=== PATIENT | female | born 1950 | race Caucasian/White ===

== ENCOUNTER → 2017-09-12 | Outpatient (CLI) | payer MEDICARE, OTHER ==
--- NOTE | 2017-09-12 13:57 | RAD ---
Ultrasound venous Doppler Indication:Right Thigh Pain Technique: Grayscale, color Doppler and spectral waveform ultrasound images of the right lower extremity deep veins. Comparison: None Findings: The interrogated lower extremity veins are compressible and demonstrate evidence of blood flow with normal respiratory variation and response to augmentation. There is a oval-shaped cystic lesion in the posterior fossae measuring 4.5 x 2.2 x 1.4 cm without internal vascularity. Impression: 1. No sonographic evidence of acute DVT of the interrogated right lower extremity deep veins. 2. 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
== END | disposition home or self-care (01) ==
LOC: US 12:55
PROVIDERS: ATTEND Specialist
DX: R22.41 Localized swelling, mass and lump, right lower limb (principal)
CPT/HCPCS: 93971

== ENCOUNTER 2019-07-06 08:58 | Emergency (ER) | payer MEDICARE ==
[~2019-07-06] VITALS: Ht 157.5 cm; Wt 103.2 kg
[2019-07-06 09:00] VITALS: BP 143/96
--- NOTE | 2019-07-06 09:45 | PHYS DOC ---
Adult General Chief Complaint Chief Complaint: VAGINAL PROBLEM HPI HPI Patient is a 68-year-old female who presents with complaint of irritation in her vaginal/shoulder region for the last few weeks. Patient states that her doctor prescribed some kind of a medication that she is not able to name but states that it didn't help. She states that she was trying to wait to go see the doctor tomorrow but she states the symptoms have just gotten to the point where she can't tolerate it any longer. She states that it feels like her hair is really bristly down there and she is being poked all over the place like a prickly sensation. Patient rates her pain to be a 7 out of 10. She denies any fever. She denies any vaginal discharge.[] Review of Systems Review of Systems Constitutional: Denies fever or chills [] Respiratory: Denies cough or shortness of breath [] Cardiovascular: No additional information not addressed in HPI [] : Denies dysuria or hematuria. Positive vaginal irritation. [] Integument: Denies rash or skin lesions [] Physical Exam Physical Exam Constitutional: Well developed, well nourished, no acute distress, non-toxic appearance. [] Cardiovascular: Regular rate and rhythm[] Lungs & Thorax: Bilateral breath sounds clear to auscultation [] Abdomen: Bowel sounds normal, soft, no tenderness. [] Skin: Warm, dry, no erythema, no rash. [] Neurologic: Alert and oriented X 3, no focal deficits noted. [] EKG EKG [] Radiology/Procedures Radiology/Procedures [] Course & Med Decision Making Course & Med Decision Making Pertinent Labs and Imaging studies reviewed. (See chart for details) [] Dragon Disclaimer Dragon Disclaimer This electronic medical record was generated, in whole or in part, using a voice recognition dictation system. Departure Departure: Impression: Primary Impression: Vulvitis Disposition: 01 HOME, SELF-CARE Condition: STABLE Referrals: CLAUDIA DUONG MD (PCP) Patient Instructions: Candidal Vulvovaginitis, [id number] Scripts Mupirocin Calcium (MUPIROCIN) 15 Gm Cream..g. 1 VIJAY TP BID for infection, #15 GM 0 Refills Prov: REGINE HEADLEY Jr. DO 07/06/19 Nystatin/Triamcin (NYSTATIN-TRIAMCINOLONE CREAM) 15 Gm Cream..g. 1 VIJAY TP BID for inflammation, #30 GM Prov: REGINE HEADLEY Jr. DO 07/06/19 Fluconazole (DIFLUCAN) 150 Mg Tablet 1 TAB PO ONCE for infection, #1 TAB 1 Refill Prov: REGINE HEADLEY Jr. DO 07/06/19 Sulfamethoxazole/Trimethoprim (BACTRIM DS TABLET) 1 Each Tablet 1 TAB PO BID for infection for 10 Days, #20 TAB 0 Refills Prov: REGINE HEADLEY Jr. DO 07/06/19 Problem Qualifiers Primary Impression: Vulvitis Chronicity: subacute Qualified Codes: N76.3 - Subacute and chronic vulvitis REGINE HEADLEY Jr. DO Jul 06, 2019 09:45
[2019-07-06] MEDS ORDERED: NYST15CR2 TP (10:03)
[2019-07-06] MEDS ORDERED: MUPI15CR8 TP (10:03)
[2019-07-06] MEDS ORDERED: FLUC150T PO (10:03)
[2019-07-06] MEDS ORDERED: SULF1TAB24 PO (10:03)
[2019-07-06 10:13] LABS: CLARITY,URINE HAZY; COLOR,URINE YELLOW; GLUCOSE,URINE >=1000 mg/dL (NEG)
[2019-07-06 10:14] LABS: BACTERIA,URINE MANY /HPF (0-FEW); BILIRUBIN,URINE NEG (NEG); NITRITE,URINE POS (NEG); SQUAMOUS EPITHELIAL CELL,UR FEW /LPF; UROBILINOGEN,URINE 0.2 mg/dL (0.2 mg/dL)
[2019-07-06 10:15] LABS: YEAST,URINE PRESENT /HPF
== END 2019-07-06 10:07 | disposition home or self-care (01) ==
LOC: ER 08:58
DX: N76.2 Acute vulvitis (principal)
CPT/HCPCS: 81001; 87086; 87186; 99284

== ENCOUNTER 2019-07-11 11:04 | Inpatient (IN) | payer MEDICARE ==
[2019-07-11] VITALS (9 sets, daily range): BP systolic 131–176; BP diastolic 73–108
[~2019-07-11] VITALS: Ht 152.4 cm; Wt 105.2 kg
[~2019-07-11 11:04] MED LIST: FLUC150T PO; MUPI15CR8 TP; NYST15CR2 TP; SULF1TAB24 PO
[2019-07-11 11:30] LABS: BASO # 0.1 x10^3/uL (0.0-0.2); BASO % 1 % (0-3); EOS # 0.1 x10^3/uL (0.0-0.7); EOS % 2 % (0-3); HEMATOCRIT 47.1 % (36.0-47.0); HEMOGLOBIN 15.3 g/dL (12.0-15.5); LYMPH # 1.8 x10^3/uL (1.0-4.8); LYMPH % 27 % (24-48); MEAN CORPUSCULAR HEMOGLOBIN 29 pg (25-35); MEAN CORPUSCULAR HGB CONC 32 g/dL (31-37); MEAN CORPUSCULAR VOLUME 90 fL (79-100); MONO # 0.5 x10^3/uL (0.0-1.1); MONO % 8 % (0-9); NEUT # 4.2 x10^3uL (1.8-7.7); NEUT % 63 % (31-73); PLATELET COUNT 196 x10^3/uL (140-400); RED BLOOD COUNT 5.26 x10^6/uL (3.50-5.40); RED CELL DISTRIBUTION WIDTH 15.3 % (11.5-14.5); WHITE BLOOD COUNT 6.7 x10^3/uL (4.0-11.0)
[2019-07-11] MEDS ORDERED: IV NORMAL SALINE 1,000ML 1,000 ML IV ONE (11:30)
[2019-07-11] MEDS ORDERED: INSULIN REGULAR 100 UNIT/ML 3ML VIAL. IV ONE (11:30)
[2019-07-11 11:42] LABS: ALBUMIN 3.5 g/dL (3.4-5.0); ALBUMIN/GLOBULIN RATIO 0.8 (1.0-1.7); CALCIUM 9.1 mg/dL (8.5-10.1); CREATININE 1.2 mg/dL (0.6-1.0); GFR 44.8; POTASSIUM 4.2 mmol/L (3.5-5.1); TOTAL BILIRUBIN 0.3 mg/dL (0.2-1.0); TOTAL PROTEIN 7.9 g/dL (6.4-8.2)
[2019-07-11 12:07] LABS: BACTERIA,URINE 0 /HPF (0-FEW); BILIRUBIN,URINE NEG (NEG); CLARITY,URINE CLEAR; COLOR,URINE STRAW; GLUCOSE,URINE >=1000 mg/dL (NEG); NITRITE,URINE NEG (NEG); RBC,URINE 0 /HPF (0-2); SQUAMOUS EPITHELIAL CELL,UR OCC /LPF; UROBILINOGEN,URINE 0.2 mg/dL (0.2 mg/dL); WBC,URINE 0 /HPF (0-4)
--- NOTE | 2019-07-11 13:12 | PHYS DOC ---
Past History Past Medical History: Depression, Diabetes, High Cholesterol, Hypertension, UTI Past Surgical History: Hysterectomy, Tubal ligation Alcohol Use: None Drug Use: None Adult General Chief Complaint Chief Complaint: HYPERGLYCEMIA HPI HPI Patient is a 68 year old F who presents with high blood sugar. She also has had increased urination, and dry mouth. She states she has not been taking her medications regularly. She denies other associated symptoms at this time. Review of Systems Review of Systems Constitutional: Denies fever or chills [] Eyes: Denies change in visual acuity, redness, or eye pain [] HENT: Denies nasal congestion or sore throat [] Respiratory: Denies cough or shortness of breath [] Cardiovascular: No additional information not addressed in HPI [] GI: Denies abdominal pain, nausea, vomiting, bloody stools or diarrhea [] : Negative except history of present illness Musculoskeletal: Denies back pain or joint pain [] Integument: Denies rash or skin lesions [] Neurologic: Denies headache, focal weakness or sensory changes [] Endocrine: Denies polyuria or polydipsia [] All other systems were reviewed and found to be within normal limits, except as documented in this note. Family History Family History No pertinent family medical history was reported Current Medications Current Medications Current medications were reviewed Current Medications Medications (Trade) Dose Ordered Sig/[facility] Start Time Stop Time Status Last Admin Dose Admin Insulin Human Regular (HumuLIN R VIAL) 10 unit 1X ONCE 07/11/19 11:30 07/11/19 11:31 DC 07/11/19 11:46 10 UNIT Sodium Chloride 1,000 ml @ 1,000 mls/hr 1X ONCE 07/11/19 11:30 07/11/19 12:29 DC 07/11/19 11:35 1,000 MLS/HR Allergies Allergies Allergies Coded Allergies Type Severity Reaction Last Updated Verified No Known Drug Allergies 07/06/19 No Physical Exam Physical Exam Constitutional: Well developed, well nourished, no acute distress, non-toxic appearance. [] HENT: Normocephalic, atraumatic, dry mucous membranes Eyes: EOMI, conjunctiva normal, no discharge. [] Neck: Normal range of motion, no tenderness, supple, no stridor. [] Cardiovascular:Heart rate regular rhythm, no murmur [] Lungs & Thorax: Bilateral breath sounds clear to auscultation [] Abdomen: Bowel sounds normal, soft, no tenderness, no masses, no pulsatile masses. [] Skin: Warm, dry, no erythema, no rash. [] Extremities: No tenderness, no cyanosis, no clubbing, ROM intact, no edema. [] Neurologic: Alert and oriented X 3, normal motor function, normal sensory function, no focal deficits noted. [] Psychologic: Affect normal, judgement normal, mood normal. [] Current Patient Data Vital Signs Vital Signs Date Time Temp Pulse Resp B/P (MAP) Pulse Ox O2 Delivery O2 Flow Rate FiO2 07/11/19 12:30 78 20 133/82 (99) 99 Room Air 07/11/19 11:17 4.0 07/11/19 11:10 98.1 Lab Results Laboratory Tests Test 07/11/19 11:13 07/11/19 11:14 07/11/19 11:40 07/11/19 12:55 Glucose (Fingerstick) 599 mg/dL (70-99) *H 453 mg/dL (70-99) H White Blood Count 6.7 x10^3/uL (4.0-11.0) Red Blood Count 5.26 x10^6/uL (3.50-5.40) Hemoglobin 15.3 g/dL (12.0-15.5) Hematocrit 47.1 % (36.0-47.0) H Mean Corpuscular Volume 90 fL (79-100) Mean Corpuscular Hemoglobin 29 pg (25-35) Mean Corpuscular Hemoglobin Concent 32 g/dL (31-37) Red Cell Distribution Width 15.3 % (11.5-14.5) H Platelet Count 196 x10^3/uL (140-400) Neutrophils (%) (Auto) 63 % (31-73) Lymphocytes (%) (Auto) 27 % (24-48) Monocytes (%) (Auto) 8 % (0-9) Eosinophils (%) (Auto) 2 % (0-3) Basophils (%) (Auto) 1 % (0-3) Neutrophils # (Auto) 4.2 x10^3uL (1.8-7.7) Lymphocytes # (Auto) 1.8 x10^3/uL (1.0-4.8) Monocytes # (Auto) 0.5 x10^3/uL (0.0-1.1) Eosinophils # (Auto) 0.1 x10^3/uL (0.0-0.7) Basophils # (Auto) 0.1 x10^3/uL (0.0-0.2) Sodium Level 134 mmol/L (136-145) L Potassium Level 4.2 mmol/L (3.5-5.1) Chloride Level 97 mmol/L (98-107) L Carbon Dioxide Level 28 mmol/L (21-32) Anion Gap 9 (6-14) Blood Urea Nitrogen 36 mg/dL (7-20) H Creatinine 1.2 mg/dL (0.6-1.0) H Estimated GFR (Cockcroft-Gault) 44.8 BUN/Creatinine Ratio 30 (6-20) H Glucose Level 612 mg/dL (70-99) *H Calcium Level 9.1 mg/dL (8.5-10.1) Magnesium Level 2.0 mg/dL (1.8-2.4) Total Bilirubin 0.3 mg/dL (0.2-1.0) Aspartate Amino Transferase (AST) 7 U/L (15-37) L Alanine Aminotransferase (ALT) 26 U/L (14-59) Alkaline Phosphatase 115 U/L (46-116) Total Protein 7.9 g/dL (6.4-8.2) Albumin 3.5 g/dL (3.4-5.0) Albumin/Globulin Ratio 0.8 (1.0-1.7) L Urine Collection Type Unknown Urine Color Straw Urine Clarity Clear Urine pH 5.5 Urine Specific [place] 1.010 Urine Protein Trace (NEG-TRACE) Urine Glucose (UA) >=1000 mg/dL (NEG) Urine Ketones (Stick) Trace mg/dL (NEG) Urine Blood Trace (NEG) Urine Nitrite Neg (NEG) Urine Bilirubin Neg (NEG) Urine Urobilinogen Dipstick 0.2 mg/dL (0.2 mg/dL) Urine Leukocyte Esterase Neg (NEG) Urine RBC 0 /HPF (0-2) Urine WBC 0 /HPF (0-4) Urine Squamous Epithelial Cells Occ /LPF Urine Bacteria 0 /HPF (0-FEW) Radiology/Procedures Radiology/Procedures [] Course & Med Decision Making Course & Med Decision Making Pertinent Labs and Imaging studies reviewed. (See chart for details) [] Dragon Disclaimer Dragon Disclaimer This electronic medical record was generated, in whole or in part, using a voice recognition dictation system. Departure Departure: Impression: Primary Impression: Hyperglycemia Disposition: ADMITTED INPATIENT Admitting Physician: Bonifacio Wilson Condition: STABLE Referrals: CLAUDIA DUONG MD (PCP) HANNY FLORES MD Jul 11, 2019 13:12
[2019-07-11] MEDS ORDERED: IV NORMAL SALINE 1,000ML 1,000 ML IV SCH (13:50)
[2019-07-11] MEDS ORDERED: ONDANSETRON PF 4 MG/2 ML VIAL. IV PRN (14:00)
[2019-07-11] MEDS ORDERED: DEXTROSE 50% 25 GM / 50ML DISP.SYRIN. IV PRN (14:15)
--- NOTE | 2019-07-11 14:16 | HP ---
ADMIT DATE: 07/11/2019 ATTENDING PHYSICIAN: Dr. Naidu. CHIEF COMPLAINT: High blood sugar. HISTORY OF PRESENT ILLNESS: The patient is a very pleasant 68-year-old female sent to the Emergency Room from her primary care doctor's office. She has stopped taking her insulin 3 days ago. Blood sugar in the ED was 612 mg/dL. She has had some blurred vision. She has increased urination, dry mouth. She denied any fevers or chills. Her lab work showed elevated blood sugar, anion gap surprisingly was normal. Bicarbonate level is 28 millimoles per liter. In talking with her, she is very confused. She says she takes one shot of insulin. I do not know what her compliance is. Hemoglobin A1c is pending. I suspect it is going to be high. She states that she stopped taking the insulin this past Sunday for whatever reason, she could not tell me and her thought process is very tangential. There is no report of dementia, but is very evident. PAST MEDICAL HISTORY: Includes a history of type 2 diabetes, hyperlipidemia, coronary artery disease, previous bypass, hysterectomy and tubal ligation. SOCIAL HISTORY: She is a nonsmoker, nondrinker. CURRENT MEDICINES: On the database. Whether or not she was compliant remains to be seen. FAMILY HISTORY: Unobtainable. ALLERGIES: She has no recorded drug allergies. REVIEW OF SYSTEMS: Significant for insulin dependency. She states she only takes 1 shot of insulin daily. She could not tell me into further detail as to who is managing sugars. She lives alone. There is no family with her. She denied any recent travel, fevers or chills. She denies any chest pain or palpitation. All other systems reviewed and determined to be negative. PHYSICAL EXAMINATION: GENERAL: When I saw her, this is a pleasant, but confused elderly female. INITIAL VITAL SIGNS: In the ED showed a blood pressure 132/69, pulse is 72 and regular. She was afebrile, oxygen saturation 97% on room air. HEENT: Head is without trauma. Her pupils are reactive. Sclerae nonicteric. Oropharynx clear. Mucous membranes are bit dry. NECK: Supple, no bruits identified. LUNGS: Otherwise clear to auscultation. CARDIOVASCULAR: Showed distant heart tones. No obvious gallops. Peripheral pulses are palpable and full. ABDOMEN: Soft, obese, protuberant. No organomegaly. Bowel sounds are normoactive. EXTREMITIES: Show trace edema. NEUROLOGIC: Her speech is fluent, focally intact. No focal deficit. Her thought process is very tangential. She is very confused and cannot answer significant pertinent questions. PERTINENT LABORATORY DATA: Hemoglobin was 15.3 g/dL in a hemoconcentrated state. White count 6700 with a normal differential. Chemistry panel: Sodium is 134, which adjusted for the pseudohyponatremia from high blood sugar is within range. Her creatinine is 1.2 mg/dL, BUN 36. Nonfasting blood sugar on admission 612 mg/dL. Transaminases, bilirubin and total protein are all within normal range. ASSESSMENT: 1. This 68-year-old female has hyperglycemia due to noncompliance of medication. 2. Type 2 diabetes mellitus. 3. Hypertension, essential. 4. History of coronary artery disease. 5. Underlying dementia that is profound. PLAN: 1. Admit to the ICU. 2. I have ordered insulin drip for tonight with the goal of transitioning her to subcutaneous insulin. 3. We will order a diabetic diet. 4. Serial chemistries. 5. We will have Geospatial Analyst see the patient to talk about and plan a safe discharge plan. There is no family here. BARRINGTON NAIDU MD DR: VENECIA/radha JOB#: [id number] / [id number]
[2019-07-11] MEDS: INSULIN REGULAR VIAL 100 UNIT in IV NORMAL SALINE 100ML 100 ML IV PRN (15:03)
--- NOTE | 2019-07-11 15:36 | NUR ---
Pt arrived onto ICU unit at approximately 1330 via EMS. Pt seen at ED and admitted for hyperglycemia with a blood sugar of 612. Pt given 1000mL NS via IV and 10 units of Insulin. Pt has peripheral IV in Left AC, 20 gauge. Vital signs stable upon arrival, pt denies any pain at this time, pt ambulated from EMS stretcher to bed. Non-skid socks, telemetry, O2 sat, applied upon arrival. Bed in lowest position, call light within reach, side rails x2 up. Blood sugar upon arrival to unit was 460. Insulin drip started at 8units/hr per glucose protocol and 's orders. Pt is a full-code, 1800 ADA diet. Pt denies any symptoms of high blood sugar. Pt belonging documented and noted. Per 's orders, pt is to only receive Insulin drip at this time, do not restart home medications. Home med list arrived with pt. Will continue to monitor and assess as appropiate. Case Management consulted. Pt instructed to call for any assistance.
--- NOTE | 2019-07-11 16:24 | EKG ---
[address] [address] Test Date: 2019-07-11 Test Time: 11:50:19 Pat Name: ROCKY MONIQUE Department: Room: [facility] Gender: F Civil Project Engineer: : [id number] Requested By: HANNY FLORES Order Number: [id number] Reading MD: Measurements Intervals [place] Rate: 73 P: 23 CO: 138 QRS: 21 QRSD: 80 T: 52 QT: 388 QTc: 431 Interpretive Statements SINUS RHYTHM QRS(T) CONTOUR ABNORMALITY CONSIDER ANTEROSEPTAL MYOCARDIAL DAMAGE POSSIBLY ABNORMAL ECG RI6.01 No previous ECG available for comparison
[2019-07-11] MEDS ORDERED: ASPI-630 PO (16:43)
[2019-07-11] MEDS ORDERED: NITR0.4T24 SL (17:15)
[2019-07-11] MEDS ORDERED: OXYB5TAB10 PO (17:15)
[2019-07-11] MEDS ORDERED: INSU100I49 SQ (17:15)
[2019-07-11] MEDS ORDERED: LACT1CAP12 PO (17:15)
[2019-07-11] MEDS ORDERED: CARV25TA2 PO (17:15)
[2019-07-11] MEDS ORDERED: LIPITOR80 MG PO (17:15)
[2019-07-11] MEDS ORDERED: CLOP75TA57 PO (17:15)
[2019-07-11] MEDS ORDERED: CLOT15CR4 TP (17:15)
[2019-07-11] MEDS ORDERED: HYDR12.572 PO (17:15)
[2019-07-11] MEDS ORDERED: LOSA100T14 PO (17:15)
[2019-07-11] MEDS ORDERED: SERT50TA PO (17:15)
[2019-07-11] MEDS ORDERED: METF10007 PO (17:15)
[2019-07-11] MEDS ORDERED: GLIM4TAB8 PO (17:15)
--- NOTE | 2019-07-11 17:18 | NUR ---
Pt came in with no cell phone or no recollection of any personal contact phone numbers. Pt states "My phone is broken so I have no way of getting in touch with anyone." RN asked pt if her phone just needed to be charged, pt stated "No, it is broken and at home." Pt is confused, Pt denies knowing anyone's phone number or way of getting into touch with anyone. Pt has expressed concern for her pets at home as they need to be fed. RN asked pt what concerns does she have with her pets. Pt states "they have a doggy door, I just want to make sure they are fed, I wish i could have gone home to check on my animals, than they could have called me to come to the hospital. RN stated "I thought you had told us your phone was broken?" "Do you have a land line phone number?" Pt recalled that her phone was broken and that no one could get in touch with her. When asked "Who is a good personal fitness trainer for you?" Pt stated "Melba Watkins, sister." Pt denies knowing phone number. Pt also mention a man named Darrell Nam from [place], [place] but also denied knowing any phone numbers. Staff has tried to obtain phone numbers by looking up contact and demographic information as well as calling pt's Primary Care Provider. Pt has no personal phone numbers in her account hx. When RN called pt's Primary Care Provider office, they also had no personal contact information for pt. RN notified nursing machine maintenance supervisor of situation. Pt came in with matted hair, vulvovaginitis, and uncontrolled DM Type 11. Pt has no recollection of when she last took diabetic medications or the dosage of insulin she uses. Pt is confused, she lives alone, no resources or contacts. For these reasons we have contacted Adult Protective Services. Neetu, Nursing Pss Delivery Professional, is aware of the situation. Case Management consulted and aware of situation. Will continue to monitor and assess as necessary. Pt instructed to call for any assistance.
--- NOTE | 2019-07-11 18:18 | NUR ---
. aware of high BPs. Dr instructed RN not to restart any home meds at this time.
--- NOTE | 2019-07-11 18:48 | NUR ---
PT/OT consulted for weakness
[2019-07-12] VITALS (13 sets, daily range): BP systolic 122–174; BP diastolic 77–113
[2019-07-12 06:19] LABS: BASO # 0.1 x10^3/uL (0.0-0.2); BASO % 1 % (0-3); EOS # 0.2 x10^3/uL (0.0-0.7); EOS % 3 % (0-3); HEMATOCRIT 46.9 % (36.0-47.0); HEMOGLOBIN 15.6 g/dL (12.0-15.5); LYMPH # 2.8 x10^3/uL (1.0-4.8); LYMPH % 40 % (24-48); MEAN CORPUSCULAR HEMOGLOBIN 29 pg (25-35); MEAN CORPUSCULAR HGB CONC 33 g/dL (31-37); MEAN CORPUSCULAR VOLUME 87 fL (79-100); MONO # 0.4 x10^3/uL (0.0-1.1); MONO % 6 % (0-9); NEUT # 3.5 x10^3uL (1.8-7.7); NEUT % 50 % (31-73); PLATELET COUNT 188 x10^3/uL (140-400); RED BLOOD COUNT 5.36 x10^6/uL (3.50-5.40); RED CELL DISTRIBUTION WIDTH 14.9 % (11.5-14.5)
[2019-07-12 06:26] LABS: CALCIUM 8.7 mg/dL (8.5-10.1); CREATININE 0.9 mg/dL (0.6-1.0); GFR 62.5; POTASSIUM 3.6 mmol/L (3.5-5.1)
[2019-07-12] MEDS: INSULIN REGULAR VIAL 100 UNIT in IV NORMAL SALINE 100ML 100 ML IV PRN (08:23)
[2019-07-12] MEDS ORDERED: DEXTROSE 50% 25 GM / 50ML DISP.SYRIN. IV PRN (08:45)
--- NOTE | 2019-07-12 10:22 | PN ---
DATE: 07/11/2019 CHIEF COMPLAINT: High blood sugar. SUBJECTIVE: No new complaints. The patient is doing well and she is up and ambulating. Her speech is fluent. She appears comfortable. She has eaten all of her breakfast. OBJECTIVE FINDINGS: VITAL SIGNS: Her blood pressure and vital signs are stable. She is afebrile. Her blood sugars in the last 3 readings are 148, 154, and 148 respectively. A hemoglobin A1c is pending. HEENT: Her pupils are reactive. Sclerae are nonicteric. The oropharynx is clear. NECK: Supple, no bruits identified. LUNGS: Otherwise clear. CARDIOVASCULAR: Showed regular heart tones. No obvious gallops. Peripheral pulses are palpable and full. ABDOMEN: Obese, protuberant. No organomegaly. Bowel sounds are hypoactive. EXTREMITIES: Showed no cyanosis. Trace edema. NEUROLOGIC: Pleasantly confused, but alert. Speech is fluent. LABORATORY STUDIES: Reviewed. Accu-Cheks were reviewed. ASSESSMENT: 1. A 68-year-old female with uncontrolled diabetes due to noncompliance of medication. 2. Type 2 diabetes. 3. Essential hypertension. 4. Coronary artery disease by history. 5. Underlying dementia. PLAN: 1. We can discontinue the insulin drip. Sugars have come down nicely. 2. Q.i.d. Accu-Cheks. 3. Diabetic diet, 1800 calories. 4. She will need diabetic education as she is willing to be trained to do fingersticks and monitor blood sugars at home. 5. We will have Mat Sewer to help with discharge planning. BARRINGTON NAIDU MD DR: VENECIA/radha JOB#: [id number] / [id number]
[2019-07-12] MEDS ORDERED: INSULIN GLARGINE SYRINGE. SQ SCH ×2 (11:30→21:00)
[2019-07-12] MEDS ORDERED: INSULIN LISPRO 300 UNITS/3 ML VIAL. SQ SCH (12:00)
[2019-07-12] MEDS: INSULIN LISPRO 300 UNITS/3 ML VIAL. SQ SCH ×2 (12:09→17:16)
--- NOTE | 2019-07-12 13:58 | NUR ---
Insulin drip d/c'd this am. Scheduled regular insulin with meals and Lantus ordered daily. Found sister, Richy, number and spoke to her per pt's wishes. Family on thier way to visit now. Pt transferred to [facility], Tele status. Walked with walker and PT to unit.
--- NOTE | 2019-07-12 23:55 | NUR ---
Dr. Wilson called about continuing medication. At this time, we have only continue Plavix per Dr. fletcher.
[2019-07-13 05:09] VITALS: BP 154/86
[2019-07-13] MEDS: CLOPIDOGREL BISULFATE 75 MG TABLET PO SCH (08:14)
[2019-07-13] MEDS: INSULIN LISPRO 300 UNITS/3 ML VIAL. SQ SCH ×3 (08:23→17:28)
[2019-07-13 08:59] VITALS: BP 155/94
--- NOTE | 2019-07-13 10:26 | PN ---
DATE: ATTENDING PHYSICIAN: Dr. Naidu. CHIEF COMPLAINT: High blood sugars. SUBJECTIVE: The patient feels quite well. She wants to go home. She has no complaints. She is eating well. She took a shower. She denied any nausea, vomiting or vision changes. OBJECTIVE FINDINGS: VITAL SIGNS: Her blood pressure today is 150/90, pulse is 90 and regular. She was afebrile, oxygen saturation 99% on room air. Nonfasting blood sugar down to 261 mg/dL. HEENT: Head is without trauma. Pupils are reactive. Sclerae nonicteric. Oropharynx clear. NECK: Supple, no bruits identified. LUNGS: Clear. CARDIOVASCULAR: Showed regular heart tones. No obvious gallops. Peripheral pulses are palpable and full. ABDOMEN: Obese, protuberant. No organomegaly. Bowel sounds are hypoactive. EXTREMITIES: Showed no cyanosis or edema. NEUROLOGIC FINDINGS: Grossly intact. Speech is fluent. She is more alert, more so than on admission; however, her thought process is still somewhat tangential with memory issues. ASSESSMENT: 1. A 68-year-old female with uncontrolled diabetes due to noncompliance and cognitive issues. 2. Type 2 diabetes. 3. Essential hypertension. 4. Obesity. 5. History of coronary artery disease. 6. Underlying dementia. PLAN: 1. We have increased her Lantus dose of 30 units tonight. 2. Continue scheduled Humalog before each meal. 3. Diabetic diet. 4. Diabetic education. 5. Social service consult in the morning for safe discharge plan. Her sister has called and noticed that she has had memory issues and may not be able to care for herself. BARRINGTON NAIDU MD DR: VENECIA/radha JOB#: [id number] / [id number]
[2019-07-13] MEDS: LOSARTAN 50 MG TABLET. PO SCH (12:24)
[2019-07-13 14:39] VITALS: BP 136/85
[2019-07-13] MEDS: CARVEDILOL 12.5 MG TABLET PO SCH (17:28)
[2019-07-13 19:00] VITALS: BP 122/74
[2019-07-13] MEDS ORDERED: INSULIN GLARGINE SYRINGE. SQ SCH (21:00)
[2019-07-13] MEDS ORDERED: ATORVASTATIN CALCIUM 20 MG TABLET PO SCH (21:00)
[2019-07-13 22:07] LABS: HEMOGLOBIN A1C 15.7 % (4.8-5.6)
[2019-07-13 22:20] VITALS: BP 107/66
[2019-07-14 06:01] VITALS: BP 142/80
[2019-07-14] MEDS: CARVEDILOL 12.5 MG TABLET PO SCH (08:00)
[2019-07-14] MEDS: LOSARTAN 50 MG TABLET. PO SCH (08:00)
[2019-07-14] MEDS: CLOPIDOGREL BISULFATE 75 MG TABLET PO SCH (08:01)
[2019-07-14] MEDS: INSULIN LISPRO 300 UNITS/3 ML VIAL. SQ SCH (08:06)
--- NOTE | 2019-07-14 08:53 | NUR ---
NURSING NOTE PT WAS IN BED THIS AM UP ON ASSESSMENT AND MEDICATION ADMINISTRATION. PT WAS A&O THIS AM. PT TOOK HER PILLS WHOLE. SPOKE WITH CASE MANAGEMENT, PT WILL GO HOME WITH HOMEHEALTH THIS AFTERNOON. PT STATES SHE DOES NOT HAVE A PREFERENCE OF THE HOME HEALTH COMPANY. PT STATES SHE HAS NEVER HAD A GLUCOMETER AT HOME TO CHECK HER BLOOD SUGAR AND HAS NEVER BEEN SHOWN HOW TO DO SO. INSTRUCTED PT THAT I WILL GIVEN HER INSTRUCTIONS AND EDUCATION BEFORE SHE LEAVES THE HOSPITAL. PT REFUSED TO TAKE A SHOWER THIS AM STATES "I HAVE A NICER SHOWER AT HOME". WILL CONTINUE TO MONITOR. SIVA CARCAMO.
[2019-07-14 10:12] VITALS: BP 135/80
[2019-07-14] MEDS ORDERED: INSU100C SQ (11:04)
[2019-07-14] MEDS ORDERED: INSU100I13 SQ (11:04)
--- NOTE | 2019-07-14 11:13 | DISCH ---
HOME HEALTH DISCHARGE/MEDS DISCHARGE INFORMATION: Discharge Date: Jul 14, 2019 Final Diagnosis: Problems Medical Problems: (1) Hyperglycemia Status: Acute Condition on Discharge: Stable CODE STATUS: Code Status: Full HOME HEALTH: Face to Face: I certify this patient is under my care and that I, or a nurse practitioner or physician's dental assistant medical assistant working with me, had a face to face encounter that meets the physician face to face encounter requirements with this patient on 07/14/19 Medical Condition(s): DM, Other Physical Therapy For: Evalulation/Treatment Occupational Therapy For: Evaluation/Treatment POST DISCHARGE ORDERS: Activity Instructions for Disc: Resume previous activity DIET AFTER DISCHARGE: ADA CERTIFICATION STATEMENT: Certification Statement: Based on the above finding, I certify that this patient is confined to the home and needs intermittent penitentiary care, physical therapy and/or speech therapy, or continues to need occupational therapy.~ This patient is under my care, and I have initiated the establishment of the plan of care.~ This patient will be followed by myself or a community physician who will periodically review the plan of care. DISCHARGE MEDICATIONS: Home Meds Active Scripts Insulin Lispro (HUMALOG) 100 Unit/1 Ml Cartridge, 25 UNIT SQ TID for dm for 30 Days, #15 EACH Prov:FIONA HERNANDEZ MD 07/14/19 Insulin Glargine,Hum.rec.anlog (LANTUS SOLOSTAR) 100 Unit/1 Ml Insuln.pen, 30 UNIT SQ QHS for dm for 30 Days, #15 ML 3 Refills Prov:FIONA HERNANDEZ MD 07/14/19 Reported Medications Oxybutynin Chloride (OXYBUTYNIN CHLORIDE) 5 Mg Tablet, 5 MG PO DAILY for HTN, TAB 07/11/19 Nitroglycerin (NITROSTAT) 0.4 Mg Tab.subl, 0.4 MG SL PRN Q5MIN PRN for CHEST PAIN, TAB 07/11/19 Lactobac Cmb #3/Fos/Pantethine (PROBIOTIC & ACIDOPHILUS CAP) 1 Each Capsule, 1 CAP PO DAILY for gut health for 30 Days, #30 CAP 0 Refills 07/11/19 Carvedilol (CARVEDILOL) 25 Mg Tablet, 25 MG PO BIDWMEALS for CARDIAC, TAB 07/11/19 Atorvastatin Calcium (LIPITOR) 80 Mg Tablet, 80 MG PO QHS for FOR CHOLESTEROL, #30 TAB 0 Refills 07/11/19 Clopidogrel Bisulfate (PLAVIX) 75 Mg Tablet, 75 MG PO DAILY for TO PREVENT BLOOD CLOTS, #30 TAB 0 Refills 07/11/19 Losartan Potassium (LOSARTAN POTASSIUM) 100 Mg Tablet, 100 MG PO DAILY for HYPERTENSION, TAB 07/11/19 Sertraline Hcl (ZOLOFT) 50 Mg Tablet, 1 TAB PO DAILY for Depression, #30 TAB 2 R efills 07/11/19 Metformin Hcl (METFORMIN HCL) 1,000 Mg Tablet, 1 TAB PO BID for Diabetes, #60 TAB 5 Refills 07/11/19 Hydrochlorothiazide (HYDROCHLOROTHIAZIDE CAPSULE ) 12.5 Mg Capsule, 12.5 MG PO DAILY for DIURETIC, CAP 0 Refills 07/11/19 Aspirin (ASPIRIN) 81 Mg Tab.chew, 81 MG PO DAILY for HTN, TAB 07/11/19 Discontinued Reported Medications Clotrimazole (CLOTRIMAZOLE) 15 Gm Cream..g., 1 VIJAY TP PRN PRN for ANAPHYLAXIS, #45 GM 07/11/19 Glimepiride (GLIMEPIRIDE) 4 Mg Tablet, 2 TAB PO DAILY for Diabetes, #30 TAB 5 Refills 07/11/19 Insulin Regular, Human (Novolin R Flexpen) 100 Unit/1 Ml Insuln.pen, 100 UNIT SQ TID for Diabetes, EACH 07/11/19 Discontinued Scripts Mupirocin Calcium (MUPIROCIN) 15 Gm Cream..g., 1 VIJAY TP BID for infection, #15 GM 0 Refills Prov:REGINE HEADLEY Jr. DO 07/06/19 Nystatin/Triamcin (NYSTATIN-TRIAMCINOLONE CREAM) 15 Gm Cream..g., 1 VIJAY TP BID for inflammation, #30 GM Prov:REGINE HEADLEY Jr. DO 07/06/19 Fluconazole (DIFLUCAN) 150 Mg Tablet, 1 TAB PO ONCE for infection, #1 TAB 1 Refill Prov:REGINE HEADLEY Jr. DO 07/06/19 Sulfamethoxazole/Trimethoprim (BACTRIM DS TABLET) 1 Each Tablet, 1 TAB PO BID for infection for 10 Days, #20 TAB 0 Refills Prov:REGINE HEADLEY Jr. DO 07/06/19 FIONA HERNANDEZ MD Jul 14, 2019 11:13
--- NOTE | 2019-07-14 12:09 | NUR ---
NURSING NOTE PT DISCHARGED HOME VIA WHEELCHAIR ACCOMPANIED BY SON. PT SENT WITH [facility]. PT GIVEN EDUCATION ABOUT DIABETES AND MEDICATION COMPLIANCE WELL BLOOD SUGAR MONITORING. PT GIVE SCRIPTS FOR GLUCOMETER, STRIPS, AND LANCETS WELL INSULIN AND NEEDLES. NO COMPLICATIONS. SIVA CARCAMO.
--- NOTE | 2019-07-14 18:01 | DS ---
DATE OF DISCHARGE: 07/14/2019 HOSPITAL COURSE: The patient is a 69-year-old female patient who was admitted on 07/11/2019 to the Emergency Room with marked hyperglycemia, polyuria and polydipsia. In the Emergency Room, she was found to have a blood sugar of 599, although her anion gap was only 9 and she was slightly dehydrated and was started on Lantus and Humalog insulin and her blood sugar had steadily improved. It transpired that she lives alone and she has also probably an early dementia with poor memory. According to her son, she even forgets to charge her cell phone and he is going to install a landline to avoid that problem with charging her cellular phone. I recommended perhaps an assisted living, but the patient is refusing that and wanting to stay at her home. Her son is entertaining the possibility that he might have to take her with him to [place] or might have to come here more often. We actually discharge her with home health to keep an eye on her at home. I also recommended that she go to her primary care physician to investigate further her memory deficit and perhaps she needs to be seen by psychiatrist to evaluate her for early dementia. PHYSICAL EXAMINATION: GENERAL: When I examined her today, she was sitting at the edge of the bed comfortably in no apparent respiratory distress, slightly pale, but no jaundice, cyanosis or thyromegaly. No jugular venous distention. No lower limb edema. VITAL SIGNS: Her heart rate was 77, blood pressure was 135/80, temperature 97.2, respiratory rate was 18 and oxygen saturation was 97%. HEAD, EYES, EARS, NOSE AND THROAT: Showed normocephalic, atraumatic. NECK: Supple. HEART: Showed normal first and second heart sounds. No gallop or murmur. CHEST: Clear to auscultation. No crepitation or rhonchi. ABDOMEN: Distended, soft, nontender. NEUROLOGIC: She was awake, alert, responding appropriately. All cranial nerves intact. She moves extremities without difficulty. She ambulates without assistance or assistive devices. Her intake over the last 24 hours was 1000, no output was recorded. LABORATORY DATA: Her lab work this morning showed white cell count 7000, hemoglobin 15.6, hematocrit 46.9, MCV 87 and platelet count of 188,000. Her chemistry this morning showed that her serum sodium was 142, potassium 3.6, chloride 107, bicarbonate 27, anion gap of 8, BUN 25, creatinine was 0.9, estimated GFR was 62 mL per minute. Her glucose 148, calcium was 8.7 and her hemoglobin A1c was 15.7%. Urinalysis showed large amount of glucose, trace of ketones, blood, negative for nitrite and leukocyte esterase. DISCHARGE MEDICATIONS: She was discharged home to continue on Lantus insulin 30 units at bedtime and Humalog insulin 25 units before meals, aspirin 81 mg once a day, atorvastatin calcium 80 mg once a day, carvedilol 25 mg twice a day, Plavix 75 mg once a day, hydrochlorothiazide 12.5 mg once a day, Lactobacillus probiotic 1 capsule daily. She is on losartan potassium 100 mg once a day, metformin 1000 mg p.o. b.i.d., nitroglycerin for Nitrostat 0.4 mg sublingually every 5 minutes x 3, oxybutynin chloride 5 mg daily and sertraline for Zoloft 50 mg daily. FINAL DISCHARGE DIAGNOSES: 1. Poorly controlled type 2 diabetes, hemoglobin A1c of 15.7%. 2. Hypertension. 3. Morbid obesity. 4. Probably cognitive impairment and probably mild dementia. We did discharge her home with a prescription for Humalog and Lantus insulin. I have had a lengthy discussion with her and her son and she will be discharged home with home health, should make an appointment with her doctor, Dr. Gupta, or her nurse practitioner, she probably needs to be referred to psychiatrist. FIONA HERNANDEZ MD DR: TAYO/radha JOB#: [id number] / [id number]
== END 2019-07-14 12:11 | disposition home health service (06) | DRG 637 ==
LOC: ER 11:04 → ICU 13:27 → 1 SOUTH 07-12 14:00
PROVIDERS: ADMIT Hospitalist; ATTEND Hospitalist
DX: E11.65 Type 2 diabetes mellitus with hyperglycemia (principal); N17.0 Acute kidney failure with tubular necrosis; E78.00 Pure hypercholesterolemia, unspecified; E78.5 Hyperlipidemia, unspecified; I10 Essential (primary) hypertension; F32.9 Major depressive disorder, single episode, unspecified; Z90.710 Acquired absence of both cervix and uterus; Z95.1 Presence of aortocoronary bypass graft; Z91.14 Patient's other noncompliance with medication regimen; Z91.19 Patient's noncompliance with other medical treatment and regimen; Z68.42 Body mass index [BMI] 45.0-49.9, adult; H53.8 Other visual disturbances; Z98.51 Tubal ligation status; I25.10 Atherosclerotic heart disease of native coronary artery without angina pectoris; F03.90 Unspecified dementia, unspecified severity, without behavioral disturbance, psychotic disturbance, mood disturbance, and anxiety; E66.01 Morbid (severe) obesity due to excess calories; E86.0 Dehydration
CPT/HCPCS: 36415; 80048; 80053; 81001; 82947; 83036; 83735; 85025; 93005; 96361; 96374; J1815; 97110; 97116; 99285-25; J7030

== ENCOUNTER → 2019-10-31 | Outpatient (CLI) | payer MEDICARE ==
[~2019-10-31] MED LIST changes: +ASPI-630 PO; +CARV25TA2 PO; +CLOP75TA57 PO; +CLOT15CR4 TP; +GLIM4TAB8 PO; +HYDR12.572 PO; +INSU100C SQ; +INSU100I13 SQ; +INSU100I49 SQ; +LACT1CAP12 PO; +LIPITOR80 MG PO; +LOSA100T14 PO; +METF10007 PO; +NITR0.4T24 SL; +OXYB5TAB10 PO; +SERT50TA PO
--- NOTE | 2019-10-31 15:53 | RAD ---
EXAM: Lumbar spine, 3 views. HISTORY: Pain. COMPARISON: None. FINDINGS: 3 views of the lumbar spine are obtained. There is grade 1 anterolisthesis of L4 on L5. There is multilevel degenerative endplate remodeling and facet arthropathy, predominantly at the lower lumbar levels. No fracture is seen. IMPRESSION: 1. Multilevel degenerative change, described above. 2. Grade 1 anterolisthesis of L4 on L5. Electronically signed by: Angelina Johns MD (10/31/2019 3:51 PM) [id number]
== END | disposition home or self-care (01) ==
LOC: DXRAD 15:27
PROVIDERS: ATTEND Physician Assistant
DX: M47.816 Spondylosis without myelopathy or radiculopathy, lumbar region (principal); M46.1 Sacroiliitis, not elsewhere classified; Z00.00 Encounter for general adult medical examination without abnormal findings
CPT/HCPCS: 72100

== ENCOUNTER → 2019-11-06 | Outpatient (CLI) | payer MEDICARE ==
--- NOTE | 2019-11-06 15:10 | RAD ---
INDICATION: Osteoporosis screening. Postmenopausal evaluation COMPARISON: None. TECHNIQUE: Bone densitometry was performed through the lumbar spine and proximal femur. FINDINGS: Lumbar Spine: BMD: 1.4 T-Score: 2.2 Proximal Femur: BMD: 0.9 T-Score: -0.4 IMPRESSION: 1. Lumbar spine falls within the normal range. 2. Proximal femur falls within the normal range. Electronically signed by: Ezequiel Miles MD (11/06/2019 3:06 PM) [id number]
--- NOTE | 2019-11-06 17:17 | RAD ---
EXAMINATION: Bilateral screening mammogram, 11/06/2019 1:30 PM CLINICAL INDICATION: 69-year-old woman presenting for screening mammogram. COMPARISON: None TECHNIQUE: Digital bilateral full-field CC and MLO views of the breasts were obtained. CAD was utilized. FINDINGS: The breasts are almost entirely fatty. There is no mass, suspicious calcification, or architectural distortion. There are scattered benign bilateral breast calcifications. IMPRESSION: 1. No mammographic evidence of malignancy. 2. BI-RADS 1: Negative. 3. Routine annual screening mammogram is recommended in 1 year. The patient will receive a reminder letter by mail when she is due for her next exam. Electronically signed by: Anna Marie Rosado MD (11/06/2019 5:15 PM) [id number]
== END ==
LOC: DXRAD 12:53
PROVIDERS: ATTEND Physician Assistant
DX: Z12.31 Encounter for screening mammogram for malignant neoplasm of breast (principal); Z13.820 Encounter for screening for osteoporosis; N64.89 Other specified disorders of breast; Z78.0 Asymptomatic menopausal state
CPT/HCPCS: 77067; 77080

== ENCOUNTER → 2020-04-19 | Outpatient (CLI) | payer MEDICARE ==
[~2020-04-19] MED LIST changes: +CLOT15CR23 TP; -CLOT15CR4 TP
--- NOTE | 2020-04-19 17:21 | RAD ---
EXAM: Lumbar spine, 3 views. HISTORY: Radiculopathy. COMPARISON: None. FINDINGS: 3 views of the lumbar spine are obtained. There is grade 1 anterolisthesis of L4 on L5. There is multilevel endplate remodeling, predominantly at L5-S1. There is multilevel facet arthropathy. No acute fracture is seen. There are cholecystectomy clips. IMPRESSION: 1. Multilevel degenerative change, primarily at the lumbosacral junction. 2. Grade 1 anterolisthesis of L4 on L5. Electronically signed by: Angelina Johns MD (04/19/2020 5:18 PM) [id number]
== END ==
LOC: RAD 16:49
PROVIDERS: ATTEND Physician Assistant
DX: M47.27 Other spondylosis with radiculopathy, lumbosacral region (principal); M43.16 Spondylolisthesis, lumbar region; Z90.49 Acquired absence of other specified parts of digestive tract
CPT/HCPCS: 72100

== ENCOUNTER → 2020-12-08 | Outpatient (CLI) | payer MEDICARE ==
--- NOTE | 2020-12-09 17:50 | RAD ---
DATE: 12/08/2020 EXAM: DIGITAL SCREEN BILAT W/CAD HISTORY: Screening COMPARISON: 11/06/2019 This study was interpreted with the benefit of Computerized Aided Detection (CAD). Breast Density: SCATTERED The breast parenchyma shows scattered fibroglandular densities. Breast parenchyma level B. FINDINGS: No mass, suspicious calcification, or architectural distortion in either breast. IMPRESSION: No evidence of malignancy. BI-RADS CATEGORY: 1 NEGATIVE RECOMMENDED FOLLOW-UP: 12M 12 MONTH FOLLOW-UP PQRS compliance statement: Patient information was entered into a reminder system with a target due date for the next mammogram. Mammography is a sensitive method for finding small breast cancers, but it does not detect them all and is not a substitute for careful clinical examination. A negative mammogram does not negate a clinically suspicious finding and should not result in delay in biopsying a clinically suspicious abnormality. "Our facility is accredited by the [employer] Mammography Program."
== END ==
LOC: MAMMO 11:10
PROVIDERS: ATTEND Physician Assistant
DX: Z12.31 Encounter for screening mammogram for malignant neoplasm of breast (principal)
CPT/HCPCS: 77067